=== PATIENT | male | born 1960 | race Caucasian/White ===

== ENCOUNTER 2021-09-13 11:22 | Inpatient (IN) | payer MEDICARE ==
[2021-09-13 12:32] LABS: ALT (SGPT) 20 U/L (8-55); AST (SGOT) 39 U/L (5-34); Albumin 3.9 g/dL (3.4-4.8); Alkaline Phosphatase 135 U/L (40-110); Anion Gap 20 mmol/L (10-20); BUN (Urea Nitrogen) 63 mg/dL (8.4-25.7); Bilirubin, Total 0.8 mg/dL (0.2-1.2); CK (CPK) 109 U/L (30-200); Calc. Creatinine Clearance 0 mL/min (70-130); Calcium 9.3 mg/dL (7.8-10.44); Carbon Dioxide 21 mmol/L (23-31); Chloride 102 mmol/L (98-107); Globulin 3.7 g/dL (2.4-3.5); Glucose 109 mg/dL (80-115); Lipase 52 U/L (8-78); Magnesium 2.5 mg/dL (1.6-2.6); Potassium 5.3 mmol/L (3.5-5.1); Protein, Total 7.6 g/dL (5.8-8.1); Sodium 138 mmol/L (136-145)
[2021-09-13 12:53] LABS: #Basophils 0.1 10x3/uL (0.0-0.2); #Eosinphils 0.2 10x3/uL (0.0-0.5); #Monocytes 0.6 10x3/uL (0.0-1.1); #Neutrophils 4.1 10x3/uL (1.5-8.4); %Basophils 1.6 % (0.0-2.0); %Eosinophils 2.7 % (0.0-6.0); %Lymphocytes 8.8 % (18.0-47.0); %Monocytes 11.7 % (0.0-10.0); %Neutrophils 74.7 % (40.0-75.0); Hemoglobin 10.6 g/dL (13.5-17.5); Mean Corpuscular HGB CONC 32.4 g/dL (32.0-36.0); Mean Corpuscular Hemoglobin 29.4 pg (27.0-33.0); Mean Corpuscular Volume 90.6 fl (81.2-95.1); Mean Platelet Volume 10.8 fl (7.4-10.4); Platelet Count 153 10x3/uL (150-450); RBC Distribution Width 19.7 % (11.5-14.5); Red Blood Cell (RBC) Count 3.61 10x6/uL (4.32-5.72); White Blood Cell (WBC) Count 5.5 10x3/uL (3.5-10.5)
[2021-09-13] MEDS ORDERED: Furosemide 40 MG/4 ML VIAL ONE (14:59)
[2021-09-13 16:30] LABS: Troponin I 0.068 ng/mL (< 0.028)
[2021-09-13] MEDS: Albumin 25% 25 GM/100 ML BOT IVPB SCH (18:30)
[2021-09-13] MEDS ORDERED: Acetaminophen 650 MG Suppository PR PRN (18:32)
[2021-09-13] MEDS ORDERED: Senokot S 8.6-50 MG TAB PO PRN (18:32)
[2021-09-13] MEDS ORDERED: Acetaminophen 325 MG TAB PO PRN (18:32)
[2021-09-13] MEDS ORDERED: Ondansetron PF 4 MG/2 ML Vial IVP PRN (18:32)
[2021-09-13] MEDS ORDERED: Ondansetron ODT 4 MG TAB PO PRN (18:32)
[2021-09-13 19:19] LABS: Troponin I 0.073 ng/mL (< 0.028)
[2021-09-13] MEDS: Benzonatate 100 MG CAP PO PRN (20:40)
[2021-09-13] MEDS ORDERED: Famotidine 20 MG TAB PO SCH (21:00)
[2021-09-14] MEDS: Albumin 25% 25 GM/100 ML BOT IVPB SCH ×3 (00:08→12:28)
[2021-09-14 05:02] LABS: #Basophils 0.1 10x3/uL (0.0-0.2); #Eosinphils 0.2 10x3/uL (0.0-0.5); #Monocytes 0.6 10x3/uL (0.0-1.1); #Neutrophils 2.7 10x3/uL (1.5-8.4); %Basophils 1.8 % (0.0-2.0); %Lymphocytes 10.3 % (18.0-47.0); %Monocytes 14.8 % (0.0-10.0); %Neutrophils 67.6 % (40.0-75.0); Hemoglobin 8.6 g/dL (13.5-17.5); Mean Corpuscular HGB CONC 31.7 g/dL (32.0-36.0); Mean Corpuscular Hemoglobin 28.7 pg (27.0-33.0); Mean Corpuscular Volume 90.3 fl (81.2-95.1); Mean Platelet Volume 10.5 fl (7.4-10.4); Platelet Count 130 10x3/uL (150-450); RBC Distribution Width 19.5 % (11.5-14.5)
[2021-09-14 05:21] LABS: Anion Gap 17 mmol/L (10-20); BUN (Urea Nitrogen) 62 mg/dL (8.4-25.7); Calc. Creatinine Clearance 42 mL/min (70-130); Calcium 8.9 mg/dL (7.8-10.44); Carbon Dioxide 20 mmol/L (23-31); Chloride 106 mmol/L (98-107); Glucose 115 mg/dL (80-115); Potassium 4.4 mmol/L (3.5-5.1); Sodium 139 mmol/L (136-145)
[2021-09-14 08:44] LABS: Cholesterol 167 mg/dl (< 200 Desired); HDL Cholesterol 28 mg/dL (>60 Neg Risk); Iron 31 ug/dL (65-175); Iron 32 ug/dL (65-175); Iron Binding Capacity, Total 285 mcg/dL (261-462); LDL Cholesterol, Calculated 119 mg/dL; Phosphorus 4.8 mg/dL (2.3-4.7); Triglycerides 98 mg/dL (Less than 150)
[2021-09-14] MEDS: Ferrous Sulfate 325 MG TAB PO SCH ×2 (09:49→17:35)
[2021-09-14] MEDS: Furosemide 40 MG TAB PO SCH ×2 (09:49→14:41)
[2021-09-14] MEDS: EPOETIN ALFA-EPBX (ESRD) 4,000 UNIT/ML VIAL SC SCH (09:50)
[2021-09-14 11:21] LABS: Bilirubin Neg (Negative); Blood, Urine 10 (Negative); Glucose, Urine (Dipstick) Normal (Negative); Ketone, Urine Negative (Negative); Leukocyte Negative (Negative); Nitrite Negative (Negative); Protein, Urine (Dipstick) 500 mg/dl (Neg-Trace); Urobilinogen Normal mg/dL (Less than 2); pH, Urine 6.5 (5.0-9.0)
[2021-09-14 11:22] LABS: Clarity Clear (Clear)
[2021-09-14 11:32] LABS: Bacteria/HPF None Seen HPF (None Seen); RBC/HPF 0-3 HPF (0-3); Squamous Epithelial 0-3 HPF (0-3)
[2021-09-14 12:44] LABS: Hemoglobin A1c 5.8 % (4.0-6.0)
[2021-09-14] MEDS: Carvedilol 3.125 MG TAB PO SCH (17:35)
[2021-09-14 19:00] LABS: SARS-CoV-2 PCR by NAA Not Detected (NotDetected)
[2021-09-14 19:37] LABS: Creatinine, Urine 57.11 mg/dL (63-166)
[2021-09-14] MEDS: Benzonatate 100 MG CAP PO PRN (20:53)
[2021-09-14] MEDS: Atorvastatin Calcium 40 MG TAB PO SCH (20:53)
[2021-09-14] MEDS: Famotidine 20 MG TAB PO SCH (20:53)
[2021-09-14] MEDS: hydrALAZINE 25 MG TAB PO SCH (20:54)
[2021-09-15 05:40] LABS: #Basophils 0.1 10x3/uL (0.0-0.2); #Eosinphils 0.2 10x3/uL (0.0-0.5); #Monocytes 0.6 10x3/uL (0.0-1.1); #Neutrophils 2.8 10x3/uL (1.5-8.4); %Basophils 1.7 % (0.0-2.0); %Eosinophils 5.6 % (0.0-6.0); %Lymphocytes 10.2 % (18.0-47.0); %Monocytes 13.6 % (0.0-10.0); %Neutrophils 68.4 % (40.0-75.0); Hemoglobin 8.8 g/dL (13.5-17.5); Mean Corpuscular HGB CONC 31.9 g/dL (32.0-36.0); Mean Corpuscular Hemoglobin 29.2 pg (27.0-33.0); Mean Corpuscular Volume 91.7 fl (81.2-95.1); Mean Platelet Volume 10.8 fl (7.4-10.4); Platelet Count 135 10x3/uL (150-450); RBC Distribution Width 19.2 % (11.5-14.5); Red Blood Cell (RBC) Count 3.01 10x6/uL (4.32-5.72); White Blood Cell (WBC) Count 4.1 10x3/uL (3.5-10.5)
[2021-09-15 05:40] LABS: INR-International Normal Ratio 1.1; PTT 28.5 sec (22.0-33.0); Prothrombin Time 11.9 sec (9.5-12.1)
[2021-09-15 05:52] LABS: ALT (SGPT) 15 U/L (8-55); AST (SGOT) 16 U/L (5-34); Albumin 3.6 g/dL (3.4-4.8); Alkaline Phosphatase 101 U/L (40-110); Anion Gap 16 mmol/L (10-20); BUN (Urea Nitrogen) 60 mg/dL (8.4-25.7); Bilirubin, Total 0.7 mg/dL (0.2-1.2); Calc. Creatinine Clearance 43 mL/min (70-130); Calcium 8.8 mg/dL (7.8-10.44); Carbon Dioxide 21 mmol/L (23-31); Chloride 106 mmol/L (98-107); Globulin 2.7 g/dL (2.4-3.5); Glucose 122 mg/dL (80-115); Potassium 4.4 mmol/L (3.5-5.1); Protein, Total 6.3 g/dL (5.8-8.1); Sodium 139 mmol/L (136-145)
[2021-09-15] MEDS: Albumin 25% 25 GM/100 ML BOT IVPB SCH ×3 (09:05→20:58)
[2021-09-15] MEDS: Carvedilol 3.125 MG TAB PO SCH ×2 (09:05→16:32)
[2021-09-15] MEDS: hydrALAZINE 25 MG TAB PO SCH ×3 (09:05→20:58)
[2021-09-15] MEDS: Furosemide 40 MG TAB PO SCH ×2 (09:05→14:31)
[2021-09-15] MEDS: Aspirin 81 mg Enteric Coated Tablet PO SCH ×2 (09:05→09:10)
[2021-09-15] MEDS: Ferrous Sulfate 325 MG TAB PO SCH ×2 (09:05→16:32)
[2021-09-15 13:15] LABS: Hep C IgG Ab Non-Reactive (NonReactive); Hep C Index 0.04 S/CO (0-0.79)
[2021-09-15] MEDS: Benzonatate 100 MG CAP PO PRN (17:24)
[2021-09-15] MEDS: Heparin 5,000 UNITS/ML VIAL SC SCH (20:58)
[2021-09-15] MEDS: Famotidine 20 MG TAB PO SCH (20:59)
[2021-09-15] MEDS: Atorvastatin Calcium 40 MG TAB PO SCH (20:59)
[2021-09-16] MEDS: Albumin 25% 25 GM/100 ML BOT IVPB SCH (02:01)
[2021-09-16] MEDS: Benzonatate 100 MG CAP PO PRN ×2 (02:40→17:12)
[2021-09-16 04:41] LABS: #Basophils 0.1 10x3/uL (0.0-0.2); #Eosinphils 0.2 10x3/uL (0.0-0.5); #Monocytes 0.6 10x3/uL (0.0-1.1); #Neutrophils 3.2 10x3/uL (1.5-8.4); %Basophils 1.1 % (0.0-2.0); %Lymphocytes 10.2 % (18.0-47.0); %Monocytes 13.7 % (0.0-10.0); %Neutrophils 69.6 % (40.0-75.0); Hemoglobin 9.1 g/dL (13.5-17.5); Mean Corpuscular HGB CONC 32.6 g/dL (32.0-36.0); Mean Corpuscular Hemoglobin 29.3 pg (27.0-33.0); Mean Corpuscular Volume 89.7 fl (81.2-95.1); Mean Platelet Volume 10.5 fl (7.4-10.4); Platelet Count 128 10x3/uL (150-450); RBC Distribution Width 19.1 % (11.5-14.5); Red Blood Cell (RBC) Count 3.11 10x6/uL (4.32-5.72); White Blood Cell (WBC) Count 4.6 10x3/uL (3.5-10.5)
[2021-09-16 05:16] LABS: Anion Gap 18 mmol/L (10-20); BUN (Urea Nitrogen) 64 mg/dL (8.4-25.7); Calc. Creatinine Clearance 40 mL/min (70-130); Carbon Dioxide 20 mmol/L (23-31); Chloride 105 mmol/L (98-107); Glucose 126 mg/dL (80-115); Potassium 4.6 mmol/L (3.5-5.1); Sodium 138 mmol/L (136-145)
[2021-09-16] MEDS ORDERED: Furosemide 40 MG/4 ML VIAL SLOW IVP SCH (09:00)
[2021-09-16] MEDS: Ferrous Sulfate 325 MG TAB PO SCH ×2 (10:19→17:12)
[2021-09-16] MEDS: Furosemide 40 MG/4 ML VIAL SLOW IVP SCH ×2 (10:19→14:39)
[2021-09-16] MEDS: hydrALAZINE 25 MG TAB PO SCH ×3 (10:19→20:50)
[2021-09-16] MEDS: Aspirin 81 mg Enteric Coated Tablet PO SCH (10:20)
[2021-09-16] MEDS: Heparin 5,000 UNITS/ML VIAL SC SCH ×2 (10:20→20:51)
[2021-09-16] MEDS: Carvedilol 6.25 MG TAB PO SCH ×2 (10:22→17:44)
[2021-09-16 12:35] LABS: Hep B Surf Ag Non-Reactive S/CO (NonReactive)
[2021-09-16] MEDS ORDERED: Heparin 10,000 UNITS/ 10 ML VIAL FS SCH (15:00)
[2021-09-16 17:03] LABS: HBSAB Concentration Less than 8.00 mIU/mL; Hep B Surf AB Non-Reactive (NonReactive)
[2021-09-16] MEDS: Famotidine 20 MG TAB PO SCH (20:50)
[2021-09-16] MEDS: Atorvastatin Calcium 40 MG TAB PO SCH (20:50)
[2021-09-17] MEDS: Benzonatate 100 MG CAP PO PRN ×2 (00:56→13:28)
[2021-09-17 04:39] LABS: Hemoglobin 8.6 g/dL (13.5-17.5); Mean Corpuscular HGB CONC 31.5 g/dL (32.0-36.0); Mean Corpuscular Hemoglobin 28.6 pg (27.0-33.0); Mean Corpuscular Volume 90.7 fl (81.2-95.1); Mean Platelet Volume 10.4 fl (7.4-10.4); Platelet Count 108 10x3/uL (150-450); RBC Distribution Width 18.7 % (11.5-14.5); Red Blood Cell (RBC) Count 3.01 10x6/uL (4.32-5.72); White Blood Cell (WBC) Count 4.5 10x3/uL (3.5-10.5)
[2021-09-17 05:09] LABS: ALT (SGPT) 15 U/L (8-55); AST (SGOT) 17 U/L (5-34); Albumin 3.8 g/dL (3.4-4.8); Alkaline Phosphatase 97 U/L (40-110); Anion Gap 16 mmol/L (10-20); BUN (Urea Nitrogen) 57 mg/dL (8.4-25.7); Bilirubin, Total 0.7 mg/dL (0.2-1.2); Calc. Creatinine Clearance 42 mL/min (70-130); Calcium 8.8 mg/dL (7.8-10.44); Carbon Dioxide 22 mmol/L (23-31); Chloride 105 mmol/L (98-107); Globulin 2.8 g/dL (2.4-3.5); Glucose 112 mg/dL (80-115); Magnesium 2.2 mg/dL (1.6-2.6); Phosphorus 5.2 mg/dL (2.3-4.7); Potassium 4.4 mmol/L (3.5-5.1); Protein, Total 6.6 g/dL (5.8-8.1); Sodium 139 mmol/L (136-145)
[2021-09-17 06:54] LABS: MDiff Complete? YES
[2021-09-17 06:57] LABS: Eosinophils 5 % (0-10); Lymphocytes 10 % (21-51); Monocytes 15 % (0-10); Neutrophil 68 % (42-75)
[2021-09-17 07:00] LABS: Platelet Morphology Comment Appears Decreased; RBC Morphology Normal
[2021-09-17] MEDS ORDERED: Furosemide 40 MG/4 ML VIAL ONE (08:22)
[2021-09-17] MEDS: Ferrous Sulfate 325 MG TAB PO SCH ×2 (08:40→18:33)
[2021-09-17] MEDS: Carvedilol 6.25 MG TAB PO SCH ×2 (08:40→18:31)
[2021-09-17] MEDS: Aspirin 81 mg Enteric Coated Tablet PO SCH ×2 (08:41→08:46)
[2021-09-17] MEDS: Sevelamer Carbonate 800 MG TAB PO SCH ×3 (08:41→18:38)
[2021-09-17] MEDS: hydrALAZINE 25 MG TAB PO SCH ×3 (08:41→21:40)
[2021-09-17] MEDS: Heparin 5,000 UNITS/ML VIAL SC SCH ×2 (08:56→21:41)
[2021-09-17] MEDS ORDERED: Heparin 10,000 UNITS/ 10 ML VIAL FS PRN ×2 (12:10→16:37)
[2021-09-17 17:14] LABS: HIV-1 Quantitative, RNA PCR <20 copies/mL (.)
[2021-09-17] MEDS: Famotidine 20 MG TAB PO SCH (21:40)
[2021-09-17] MEDS: Atorvastatin Calcium 40 MG TAB PO SCH (21:40)
[2021-09-18 04:34] LABS: Anion Gap 16 mmol/L (10-20); BUN (Urea Nitrogen) 53 mg/dL (8.4-25.7); Calc. Creatinine Clearance 43 mL/min (70-130); Calcium 8.6 mg/dL (7.8-10.44); Carbon Dioxide 24 mmol/L (23-31); Chloride 104 mmol/L (98-107); Glucose 129 mg/dL (80-115); Potassium 4.3 mmol/L (3.5-5.1); Sodium 140 mmol/L (136-145)
[2021-09-18 04:51] LABS: Hemoglobin 8.3 g/dL (13.5-17.5); Mean Corpuscular HGB CONC 31.9 g/dL (32.0-36.0); Mean Corpuscular Hemoglobin 28.8 pg (27.0-33.0); Mean Corpuscular Volume 90.3 fl (81.2-95.1); Mean Platelet Volume 10.9 fl (7.4-10.4); Platelet Count 97 10x3/uL (150-450); Red Blood Cell (RBC) Count 2.88 10x6/uL (4.32-5.72); White Blood Cell (WBC) Count 4.7 10x3/uL (3.5-10.5)
[2021-09-18 06:35] LABS: MDiff Complete? YES; Platelet Morphology Comment Appears Decreased
[2021-09-18 06:36] LABS: Anisocytosis SLIGHT = 6-15 cells (100X) (0-5/hpf)
[2021-09-18 06:40] LABS: Band 2 % (5-11); Eosinophils 4 % (0-10); Lymphocytes 9 % (21-51); Monocytes 17 % (0-10); Neutrophil 65 % (42-75)
[2021-09-18] MEDS: Aspirin 81 mg Enteric Coated Tablet PO SCH (11:36)
[2021-09-18] MEDS: Carvedilol 6.25 MG TAB PO SCH ×2 (11:36→17:54)
[2021-09-18] MEDS: Sevelamer Carbonate 800 MG TAB PO SCH ×3 (11:37→18:03)
[2021-09-18] MEDS: Ferrous Sulfate 325 MG TAB PO SCH ×2 (11:37→17:53)
[2021-09-18] MEDS: hydrALAZINE 25 MG TAB PO SCH ×3 (11:41→22:01)
[2021-09-18] MEDS: Heparin 5,000 UNITS/ML VIAL SC SCH ×2 (11:54→22:00)
[2021-09-18] MEDS: Guaifenesin DM 100-10/5 ML UDCUP PO PRN (17:53)
[2021-09-18] MEDS: Atorvastatin Calcium 40 MG TAB PO SCH (22:02)
[2021-09-18] MEDS: Famotidine 20 MG TAB PO SCH (22:02)
[2021-09-19 05:20] LABS: Hemoglobin 8.4 g/dL (13.5-17.5); Mean Corpuscular HGB CONC 32.4 g/dL (32.0-36.0); Mean Corpuscular Hemoglobin 29.2 pg (27.0-33.0); Mean Corpuscular Volume 89.9 fl (81.2-95.1); Mean Platelet Volume 11.5 fl (7.4-10.4); Platelet Count 105 10x3/uL (150-450); RBC Distribution Width 18.8 % (11.5-14.5); Red Blood Cell (RBC) Count 2.88 10x6/uL (4.32-5.72); White Blood Cell (WBC) Count 4.8 10x3/uL (3.5-10.5)
[2021-09-19 05:35] LABS: Anion Gap 16 mmol/L (10-20); BUN (Urea Nitrogen) 58 mg/dL (8.4-25.7); Calc. Creatinine Clearance 40 mL/min (70-130); Calcium 8.7 mg/dL (7.8-10.44); Carbon Dioxide 22 mmol/L (23-31); Chloride 105 mmol/L (98-107); Glucose 124 mg/dL (80-115); Phosphorus 5.4 mg/dL (2.3-4.7); Potassium 4.2 mmol/L (3.5-5.1); Sodium 139 mmol/L (136-145)
[2021-09-19] MEDS: Ferrous Sulfate 325 MG TAB PO SCH ×2 (08:24→16:23)
[2021-09-19] MEDS: Aspirin 81 mg Enteric Coated Tablet PO SCH (08:25)
[2021-09-19] MEDS: Carvedilol 6.25 MG TAB PO SCH ×2 (08:25→16:23)
[2021-09-19] MEDS: Sevelamer Carbonate 800 MG TAB PO SCH ×3 (08:25→16:23)
[2021-09-19] MEDS: Heparin 5,000 UNITS/ML VIAL SC SCH ×2 (08:25→21:25)
[2021-09-19] MEDS: hydrALAZINE 25 MG TAB PO SCH ×3 (08:26→21:24)
[2021-09-19] MEDS: Benzonatate 100 MG CAP PO PRN ×2 (16:23→21:24)
[2021-09-19] MEDS: Guaifenesin DM 100-10/5 ML UDCUP PO PRN (16:29)
[2021-09-19] MEDS ORDERED: Tuberculin PPD 0.1 ML VIAL I-DERMAL SCH (17:30)
[2021-09-19] MEDS: Atorvastatin Calcium 40 MG TAB PO SCH (21:24)
[2021-09-19] MEDS: Famotidine 20 MG TAB PO SCH (21:25)
[2021-09-20 04:21] LABS: Hemoglobin 8.3 g/dL (13.5-17.5); Mean Corpuscular Hemoglobin 28.8 pg (27.0-33.0); Mean Corpuscular Volume 89.9 fl (81.2-95.1); Mean Platelet Volume 10.4 fl (7.4-10.4); RBC Distribution Width 18.7 % (11.5-14.5); Red Blood Cell (RBC) Count 2.88 10x6/uL (4.32-5.72); White Blood Cell (WBC) Count 4.6 10x3/uL (3.5-10.5)
[2021-09-20 04:41] LABS: Anion Gap 15 mmol/L (10-20); BUN (Urea Nitrogen) 50 mg/dL (8.4-25.7); Calc. Creatinine Clearance 42 mL/min (70-130); Calcium 8.6 mg/dL (7.8-10.44); Carbon Dioxide 24 mmol/L (23-31); Chloride 103 mmol/L (98-107); Glucose 114 mg/dL (80-115); Sodium 138 mmol/L (136-145)
[2021-09-20 04:49] LABS: Platelet Count 99 10x3/uL (150-450)
[2021-09-20 04:50] LABS: MDiff Complete? YES
[2021-09-20 04:54] LABS: Band 1 % (5-11); Eosinophils 1 % (0-10); Lymphocytes 11 % (21-51); Monocytes 16 % (0-10); Neutrophil 67 % (42-75); Reactive Lymphocytes 4 % (0-10)
[2021-09-20 04:55] LABS: Ovalocytes SLIGHT = 2-5 cells (100X) (0-1/hpf); Platelet Morphology Comment Appears Decreased
[2021-09-20] MEDS: Sevelamer Carbonate 800 MG TAB PO SCH ×3 (07:55→17:24)
[2021-09-20] MEDS: Ferrous Sulfate 325 MG TAB PO SCH ×2 (07:55→17:24)
[2021-09-20] MEDS: Carvedilol 6.25 MG TAB PO SCH ×2 (07:55→17:24)
[2021-09-20] MEDS: Aspirin 81 mg Enteric Coated Tablet PO SCH ×2 (07:55→08:06)
[2021-09-20] MEDS: Heparin 5,000 UNITS/ML VIAL SC SCH ×2 (07:55→20:52)
[2021-09-20] MEDS: hydrALAZINE 25 MG TAB PO SCH ×3 (07:56→20:52)
[2021-09-20] MEDS: Guaifenesin DM 100-10/5 ML UDCUP PO PRN (18:12)
[2021-09-20] MEDS: Famotidine 20 MG TAB PO SCH ×2 (20:51→20:55)
[2021-09-20] MEDS: Atorvastatin Calcium 40 MG TAB PO SCH ×2 (20:52→20:54)
[2021-09-20 22:50] LABS: Hep B Core Total Ab Non-Reactive (NonReactive); Hep B Core Total Index 0.05 S/CO (0-0.79)
[2021-09-21 04:37] LABS: Hemoglobin 8.7 g/dL (13.5-17.5); Mean Corpuscular HGB CONC 32.2 g/dL (32.0-36.0); Mean Corpuscular Hemoglobin 28.9 pg (27.0-33.0); Mean Corpuscular Volume 89.7 fl (81.2-95.1); Mean Platelet Volume 11.1 fl (7.4-10.4); Platelet Count 106 10x3/uL (150-450); RBC Distribution Width 18.4 % (11.5-14.5); Red Blood Cell (RBC) Count 3.01 10x6/uL (4.32-5.72); White Blood Cell (WBC) Count 4.3 10x3/uL (3.5-10.5)
[2021-09-21 05:10] LABS: Anion Gap 16 mmol/L (10-20); BUN (Urea Nitrogen) 34 mg/dL (8.4-25.7); Calc. Creatinine Clearance 51 mL/min (70-130); Calcium 8.9 mg/dL (7.8-10.44); Carbon Dioxide 25 mmol/L (23-31); Chloride 101 mmol/L (98-107); Glucose 110 mg/dL (80-115); Potassium 4.1 mmol/L (3.5-5.1); Sodium 138 mmol/L (136-145)
[2021-09-21 05:45] VITALS: BMI 37.9
[2021-09-21 05:51] LABS: MDiff Complete? YES
[2021-09-21 05:54] LABS: Eosinophils 6 % (0-10); Lymphocytes 5 % (21-51); Monocytes 14 % (0-10); Neutrophil 73 % (42-75); Platelet Morphology Comment Appears Decreased; Reactive Lymphocytes 1 % (0-10)
[2021-09-21 05:55] LABS: RBC Morphology Normal
[2021-09-21] MEDS: EPOETIN ALFA-EPBX (ESRD) 4,000 UNIT/ML VIAL SC SCH (10:02)
[2021-09-21] MEDS: Carvedilol 6.25 MG TAB PO SCH ×2 (10:03→15:42)
[2021-09-21] MEDS: hydrALAZINE 25 MG TAB PO SCH ×3 (10:03→20:58)
[2021-09-21] MEDS: Ferrous Sulfate 325 MG TAB PO SCH ×2 (10:03→15:42)
[2021-09-21] MEDS: Sevelamer Carbonate 800 MG TAB PO SCH ×3 (10:03→15:41)
[2021-09-21] MEDS: Aspirin 81 mg Enteric Coated Tablet PO SCH (10:03)
[2021-09-21] MEDS: Heparin 5,000 UNITS/ML VIAL SC SCH ×2 (11:25→20:59)
[2021-09-21] MEDS ORDERED: READ PPD TEST SITE PO SCH (17:30)
[2021-09-21] MEDS: Guaifenesin DM 100-10/5 ML UDCUP PO PRN (18:55)
[2021-09-21] MEDS: Famotidine 20 MG TAB PO SCH (20:59)
[2021-09-21] MEDS: Atorvastatin Calcium 40 MG TAB PO SCH (20:59)
[2021-09-21 22:19] LABS: SARS-CoV-2 PCR by NAA Not Detected (NotDetected)
[2021-09-22] MEDS: Guaifenesin DM 100-10/5 ML UDCUP PO PRN (03:38)
[2021-09-22 04:30] LABS: Hemoglobin 8.3 g/dL (13.5-17.5); Mean Corpuscular HGB CONC 31.8 g/dL (32.0-36.0); Mean Corpuscular Hemoglobin 28.8 pg (27.0-33.0); Mean Corpuscular Volume 90.6 fl (81.2-95.1); Mean Platelet Volume 10.9 fl (7.4-10.4); Platelet Count 102 10x3/uL (150-450); Red Blood Cell (RBC) Count 2.88 10x6/uL (4.32-5.72); White Blood Cell (WBC) Count 4.7 10x3/uL (3.5-10.5)
[2021-09-22 04:44] LABS: Anion Gap 17 mmol/L (10-20); BUN (Urea Nitrogen) 44 mg/dL (8.4-25.7); Calc. Creatinine Clearance 41 mL/min (70-130); Calcium 8.9 mg/dL (7.8-10.44); Carbon Dioxide 23 mmol/L (23-31); Chloride 101 mmol/L (98-107); Glucose 116 mg/dL (80-115); Sodium 137 mmol/L (136-145)
[2021-09-22 05:23] LABS: MDiff Complete? YES
[2021-09-22 05:27] LABS: Eosinophils 4 % (0-10); Lymphocytes 11 % (21-51); Monocytes 22 % (0-10); Neutrophil 63 % (42-75)
[2021-09-22 05:30] LABS: Platelet Morphology Comment Appears Decreased; RBC Morphology Normal
[2021-09-22] MEDS: Sevelamer Carbonate 800 MG TAB PO SCH ×3 (08:25→16:57)
[2021-09-22] MEDS: Carvedilol 6.25 MG TAB PO SCH ×2 (08:25→14:55)
[2021-09-22] MEDS: Ferrous Sulfate 325 MG TAB PO SCH ×2 (08:25→14:56)
[2021-09-22] MEDS: Aspirin 81 mg Enteric Coated Tablet PO SCH (08:25)
[2021-09-22] MEDS: hydrALAZINE 25 MG TAB PO SCH ×3 (08:25→21:30)
[2021-09-22] MEDS: Heparin 5,000 UNITS/ML VIAL SC SCH ×2 (08:25→21:30)
[2021-09-22] MEDS ORDERED: EPINEPHrine 1 MG/ML AMP ONE (10:23)
[2021-09-22] MEDS ORDERED: Bupivacaine 0.25% HCL 30 ML VIAL ONE (10:23)
[2021-09-22] MEDS ORDERED: ceFAZolin 2 GM/Dextrose 50 ML IVPB ONE (13:04)
[2021-09-22] MEDS ORDERED: Ketamine 50 MG/ML (10ML VIAL) ONE (13:07)
[2021-09-22] MEDS ORDERED: Fentanyl 100 MCG/2 ML VIAL ONE (13:08)
[2021-09-22] MEDS ORDERED: PROPOFOL 20 ML ONE ×2 (13:08→13:40)
[2021-09-22] MEDS ORDERED: Midazolam HCl 2 mg/2 ml Vial ONE (13:09)
[2021-09-22] MEDS: Famotidine 20 MG TAB PO SCH (21:30)
[2021-09-22] MEDS: Atorvastatin Calcium 40 MG TAB PO SCH (21:30)
[2021-09-23 05:25] LABS: Hemoglobin 8.2 g/dL (13.5-17.5); Mean Corpuscular HGB CONC 31.5 g/dL (32.0-36.0); Mean Corpuscular Hemoglobin 28.7 pg (27.0-33.0); Mean Corpuscular Volume 90.9 fl (81.2-95.1); Mean Platelet Volume 11.5 fl (7.4-10.4); Platelet Count 106 10x3/uL (150-450); RBC Distribution Width 18.1 % (11.5-14.5); Red Blood Cell (RBC) Count 2.86 10x6/uL (4.32-5.72); White Blood Cell (WBC) Count 4.4 10x3/uL (3.5-10.5)
[2021-09-23 05:37] LABS: Anion Gap 14 mmol/L (10-20); BUN (Urea Nitrogen) 29 mg/dL (8.4-25.7); Calc. Creatinine Clearance 55 mL/min (70-130); Calcium 8.7 mg/dL (7.8-10.44); Carbon Dioxide 27 mmol/L (23-31); Chloride 102 mmol/L (98-107); Glucose 120 mg/dL (80-115); Potassium 4.2 mmol/L (3.5-5.1); Sodium 139 mmol/L (136-145)
[2021-09-23 06:40] LABS: Band 1 % (5-11); Eosinophils 3 % (0-10); Lymphocytes 6 % (21-51); Monocytes 13 % (0-10); Neutrophil 75 % (42-75); Reactive Lymphocytes 2 % (0-10)
[2021-09-23 06:42] LABS: Anisocytosis SLIGHT = 6-15 cells (100X) (0-5/hpf); Elliptocytes SLIGHT = 2-5 cells (100X) (0-1/hpf); Macrocytosis SLIGHT = 6-15 cells (100X) (0-5/hpf); Microcytosis SLIGHT = 6-15 cells (100X) (0-5/hpf); Platelet Morphology Comment Appears Decreased
[2021-09-23 06:45] LABS: MDiff Complete? YES; Manual Diff?? YES
[2021-09-23] MEDS: Ferrous Sulfate 325 MG TAB PO SCH ×2 (08:16→17:09)
[2021-09-23] MEDS: Aspirin 81 mg Enteric Coated Tablet PO SCH (08:16)
[2021-09-23] MEDS: Sevelamer Carbonate 800 MG TAB PO SCH ×3 (08:16→17:08)
[2021-09-23] MEDS: Carvedilol 6.25 MG TAB PO SCH ×2 (08:16→17:08)
[2021-09-23] MEDS: hydrALAZINE 25 MG TAB PO SCH ×3 (08:16→20:53)
[2021-09-23] MEDS: Heparin 5,000 UNITS/ML VIAL SC SCH ×2 (08:17→22:43)
[2021-09-23] MEDS: Famotidine 20 MG TAB PO SCH (20:53)
[2021-09-23] MEDS: Atorvastatin Calcium 40 MG TAB PO SCH (20:53)
[2021-09-23] MEDS: Benzonatate 100 MG CAP PO PRN (20:57)
[2021-09-24 04:31] LABS: Mean Corpuscular HGB CONC 31.9 g/dL (32.0-36.0); Mean Corpuscular Hemoglobin 28.9 pg (27.0-33.0); Mean Corpuscular Volume 90.6 fl (81.2-95.1); Mean Platelet Volume 11.1 fl (7.4-10.4); Platelet Count 105 10x3/uL (150-450); RBC Distribution Width 18.2 % (11.5-14.5); Red Blood Cell (RBC) Count 2.77 10x6/uL (4.32-5.72); White Blood Cell (WBC) Count 4.4 10x3/uL (3.5-10.5)
[2021-09-24 04:58] LABS: Anion Gap 15 mmol/L (10-20); BUN (Urea Nitrogen) 42 mg/dL (8.4-25.7); Calc. Creatinine Clearance 41 mL/min (70-130); Calcium 8.7 mg/dL (7.8-10.44); Carbon Dioxide 25 mmol/L (23-31); Chloride 101 mmol/L (98-107); Glucose 110 mg/dL (80-115); Potassium 4.2 mmol/L (3.5-5.1); Sodium 137 mmol/L (136-145)
[2021-09-24 05:46] LABS: MDiff Complete? YES
[2021-09-24 05:52] LABS: Eosinophils 4 % (0-10); Lymphocytes 10 % (21-51); Monocytes 14 % (0-10); Neutrophil 72 % (42-75)
[2021-09-24 05:57] LABS: Anisocytosis SLIGHT = 6-15 cells (100X) (0-5/hpf); Macrocytosis SLIGHT = 6-15 cells (100X) (0-5/hpf); Microcytosis SLIGHT = 6-15 cells (100X) (0-5/hpf); Platelet Morphology Comment Appears Decreased
[2021-09-24] MEDS: Heparin 5,000 UNITS/ML VIAL SC SCH (13:33)
[2021-09-24] MEDS: Ferrous Sulfate 325 MG TAB PO SCH ×2 (13:35→16:16)
[2021-09-24] MEDS: Carvedilol 6.25 MG TAB PO SCH ×2 (13:35→16:15)
[2021-09-24] MEDS: Sevelamer Carbonate 800 MG TAB PO SCH ×3 (13:36→16:12)
[2021-09-24] MEDS: Aspirin 81 mg Enteric Coated Tablet PO SCH (13:36)
[2021-09-24] MEDS: hydrALAZINE 25 MG TAB PO SCH ×2 (13:36→16:12)
[2021-09-24 16:42] VITALS: BP 142/68; TEMP 99.5
== END 2021-09-24 18:10 | disposition home or self-care (01) | DRG 673 ==
LOC: CSHERS 11:22 → CSHTELE 16:25 → OBSVTOIN 09-15 12:44
PROVIDERS: ADMIT Emergency Medicine; ATTEND Hospitalist
PROC: 5A1D70Z Performance of Urinary Filtration, Intermittent, Less than 6 Hours Per Day (ICD-10-PCS; 2021-09-16)
PROC: 06HY33Z Insertion of Infusion Device into Lower Vein, Percutaneous Approach (ICD-10-PCS; 2021-09-16)
PROC: B54CZZA Ultrasonography of Left Lower Extremity Veins, Guidance (ICD-10-PCS; 2021-09-16)
PROC: 0JH63XZ Insertion of Tunneled Vascular Access Device into Chest Subcutaneous Tissue and Fascia, Percutaneous Approach (ICD-10-PCS; principal; 2021-09-22)
PROC: 02HV33Z Insertion of Infusion Device into Superior Vena Cava, Percutaneous Approach (ICD-10-PCS; 2021-09-22)
PROC: B5181ZA Fluoroscopy of Superior Vena Cava using Low Osmolar Contrast, Guidance (ICD-10-PCS; 2021-09-22)
PROC: B548ZZA Ultrasonography of Superior Vena Cava, Guidance (ICD-10-PCS; 2021-09-22)
DX: N17.9 Acute kidney failure, unspecified (principal); I50.43 Acute on chronic combined systolic (congestive) and diastolic (congestive) heart failure; I69.354 Hemiplegia and hemiparesis following cerebral infarction affecting left non-dominant side; J90 Pleural effusion, not elsewhere classified; Z20.822 Contact with and (suspected) exposure to COVID-19; E87.5 Hyperkalemia; E11.22 Type 2 diabetes mellitus with diabetic chronic kidney disease; E11.42 Type 2 diabetes mellitus with diabetic polyneuropathy; M43.10 Spondylolisthesis, site unspecified; N25.81 Secondary hyperparathyroidism of renal origin; Z60.2 Problems related to living alone; I35.0 Nonrheumatic aortic (valve) stenosis; D63.1 Anemia in chronic kidney disease; I25.10 Atherosclerotic heart disease of native coronary artery without angina pectoris; E66.01 Morbid (severe) obesity due to excess calories; F41.9 Anxiety disorder, unspecified; N18.6 End stage renal disease; I45.10 Unspecified right bundle-branch block; K74.60 Unspecified cirrhosis of liver; E83.39 Other disorders of phosphorus metabolism; Z95.2 Presence of prosthetic heart valve; Z88.8 Allergy status to other drugs, medicaments and biological substances; Z79.899 Other long term (current) drug therapy; Z95.1 Presence of aortocoronary bypass graft; Z95.5 Presence of coronary angioplasty implant and graft; Z89.412 Acquired absence of left great toe; Z89.422 Acquired absence of other left toe(s); Z85.51 Personal history of malignant neoplasm of bladder; Z68.37 Body mass index [BMI] 37.0-37.9, adult
CPT/HCPCS: 0439T; 36415; 36416; 71045; 80048; 80053; 80061; 81001; 82550; 82553; 82570; 82607; 82746; 83036; 83540; 83550; 83690; 83735; 83880; 84100; 84156; 84484; 85025; 85027; 85610; 85730; 86580; 86704; 86706; 86803; 87340; 87536; 90935; 93005; 93010; 93306; 94760; 96372; 96374; 96375; 96376; 99213; C1752; G0257; G0378; G0463; J0171; J0690; J1642; J1644; J1940; J2250; J2704; J3010; P9047; Q5105; S0020; U0003; U0005

== ENCOUNTER 2021-09-25 17:55 | Emergency (ER) | payer MEDICARE ==
[2021-09-25 18:26] LABS: Hemoglobin 8.9 g/dL (13.5-17.5); Mean Corpuscular HGB CONC 31.8 g/dL (32.0-36.0); Mean Corpuscular Volume 91.2 fl (81.2-95.1); Mean Platelet Volume 10.8 fl (7.4-10.4); Platelet Count 120 10x3/uL (150-450); Red Blood Cell (RBC) Count 3.07 10x6/uL (4.32-5.72); White Blood Cell (WBC) Count 6.4 10x3/uL (3.5-10.5)
[2021-09-25 18:29] LABS: INR-International Normal Ratio 1.1; Prothrombin Time 11.7 sec (9.5-12.1)
[2021-09-25 18:30] LABS: ALT (SGPT) 7 U/L (8-55); AST (SGOT) 20 U/L (5-34); Albumin 3.9 g/dL (3.4-4.8); Alkaline Phosphatase 110 U/L (40-110); Anion Gap 16 mmol/L (10-20); BUN (Urea Nitrogen) 36 mg/dL (8.4-25.7); Bilirubin, Total 1.3 mg/dL (0.2-1.2); Calc. Creatinine Clearance 0 mL/min (70-130); Calcium 9.3 mg/dL (7.8-10.44); Carbon Dioxide 26 mmol/L (23-31); Chloride 98 mmol/L (98-107); Globulin 3.3 g/dL (2.4-3.5); Glucose 108 mg/dL (80-115); Potassium 3.9 mmol/L (3.5-5.1); Protein, Total 7.2 g/dL (5.8-8.1); Sodium 136 mmol/L (136-145)
[2021-09-25 18:58] LABS: Eosinophils 3 % (0-10); Lymphocytes 8 % (21-51); Monocytes 13 % (0-10); Neutrophil 74 % (42-75)
[2021-09-25 18:59] LABS: Anisocytosis SLIGHT = 6-15 cells (100X) (0-5/hpf); Hypochromia SLIGHT = 6-15 cells (100X) (0-5/hpf); MDiff Complete? YES
[2021-09-25 19:00] LABS: Platelet Morphology Comment Appears Decreased
[2021-09-25] MEDS ORDERED: Acetaminophen 500 MG TAB ONE (23:05)
[2021-09-25] MEDS ORDERED: traMADol HCl 50 MG TAB ONE (23:11)
[2021-09-26 00:38] LABS: Hemoglobin 8.5 g/dL (13.5-17.5); Mean Corpuscular HGB CONC 32.3 g/dL (32.0-36.0); Mean Corpuscular Hemoglobin 29.1 pg (27.0-33.0); Mean Corpuscular Volume 90.1 fl (81.2-95.1); Platelet Count 116 10x3/uL (150-450); RBC Distribution Width 17.8 % (11.5-14.5); Red Blood Cell (RBC) Count 2.92 10x6/uL (4.32-5.72); White Blood Cell (WBC) Count 5.9 10x3/uL (3.5-10.5)
[2021-09-26 00:39] LABS: MDiff Complete? YES; Platelet Morphology Comment Appears Decreased
[2021-09-26 00:43] LABS: Lymphocytes 13 % (21-51); Monocytes 15 % (0-10); Neutrophil 72 % (42-75)
[2021-09-26 04:39] LABS: Anisocytosis SLIGHT = 6-15 cells (100X) (0-5/hpf); Hypochromia SLIGHT = 6-15 cells (100X) (0-5/hpf); Macrocytosis SLIGHT = 6-15 cells (100X) (0-5/hpf); Microcytosis SLIGHT = 6-15 cells (100X) (0-5/hpf)
== END 2021-09-26 00:57 | disposition home or self-care (01) ==
LOC: CSHERS 17:55
DX: T85.838A Hemorrhage due to other internal prosthetic devices, implants and grafts, initial encounter (principal); D64.9 Anemia, unspecified; E11.42 Type 2 diabetes mellitus with diabetic polyneuropathy; I50.9 Heart failure, unspecified; Z95.5 Presence of coronary angioplasty implant and graft; Z79.82 Long term (current) use of aspirin; Z79.899 Other long term (current) drug therapy
CPT/HCPCS: 36415; 71045; 80053; 85025; 85610; 85730; 93005; 96372; J2597

== ENCOUNTER 2022-01-02 14:38 | Outpatient (CLI) | payer MEDICARE | END 2022-01-02 14:39 | disposition home or self-care (01) | LOC: CSHULT 14:38 | PROVIDERS: ATTEND Internal Medicine Nephrology | DX: Z01.818 Encounter for other preprocedural examination (principal); N18.6 End stage renal disease | CPT/HCPCS: 93970 ==

== ENCOUNTER 2022-01-25 16:31 | Inpatient (IN) | payer MEDICARE ==
[2022-01-25 17:27] LABS: #Basophils 0.1 10x3/uL (0.0-0.2); #Eosinphils 0.2 10x3/uL (0.0-0.5); #Monocytes 0.7 10x3/uL (0.0-1.1); #Neutrophils 4.3 10x3/uL (1.5-8.4); %Basophils 1.3 % (0.0-2.0); %Eosinophils 3.4 % (0.0-6.0); %Lymphocytes 12.1 % (18.0-47.0); %Monocytes 11.6 % (0.0-10.0); %Neutrophils 71.1 % (40.0-75.0); Hemoglobin 11.3 g/dL (13.5-17.5); Mean Corpuscular HGB CONC 32.3 g/dL (32.0-36.0); Mean Corpuscular Hemoglobin 31.3 pg (27.0-33.0); Mean Platelet Volume 10.6 fl (7.4-10.4); Platelet Count 86 10x3/uL (150-450); RBC Distribution Width 17.6 % (11.5-14.5); Red Blood Cell (RBC) Count 3.61 10x6/uL (4.32-5.72)
[2022-01-25 17:35] LABS: Troponin I 0.059 ng/mL (< 0.028)
[2022-01-25 18:11] LABS: ALT (SGPT) 14 U/L (8-55); AST (SGOT) 15 U/L (5-34); Albumin 3.8 g/dL (3.4-4.8); Alkaline Phosphatase 112 U/L (40-110); Anion Gap 20 mmol/L (10-20); BUN (Urea Nitrogen) 73 mg/dL (8.4-25.7); Bilirubin, Total 0.8 mg/dL (0.2-1.2); Calc. Creatinine Clearance 0 mL/min (70-130); Calcium 8.7 mg/dL (7.8-10.44); Carbon Dioxide 19 mmol/L (23-31); Chloride 103 mmol/L (98-107); Estimated GFR 14; Globulin 3.2 g/dL (2.4-3.5); Glucose 163 mg/dL (80-115); Potassium 4.6 mmol/L (3.5-5.1); Sodium 137 mmol/L (136-145)
[2022-01-25] MEDS ORDERED: VANCOMYCIN 2 GRAM/400 ML BAG IVPB SCH (20:30)
[2022-01-25 21:07] LABS: Magnesium 2.3 mg/dL (1.6-2.6)
[2022-01-25 21:10] LABS: PTT 29.7 sec (22.0-33.0); Prothrombin Time 11.3 sec (9.5-12.1)
[2022-01-25 21:31] LABS: CKMB 2.5 ng/mL (0-6.6)
[2022-01-25] MEDS ORDERED: Cefepime 1 GM in Sodium Chloride 0.9% 100 ML IVPB SCH (22:00)
[2022-01-25] MEDS ORDERED: VANCOMYCIN IVPB SCH (22:00)
[2022-01-25 22:02] VITALS: BMI 34.5
[2022-01-25] MEDS ORDERED: Acetaminophen 325 MG TAB PO PRN (22:42)
[2022-01-25] MEDS: hydrALAZINE 25 MG TAB PO SCH (23:18)
[2022-01-25] MEDS: Furosemide 100 MG/10 ML VIAL SLOW IVP SCH ×2 (23:19→23:35)
[2022-01-26 00:22] LABS: Bilirubin Neg (Negative); Blood, Urine 25 (Negative); Clarity Slightly Cloudy (Clear); Glucose, Urine (Dipstick) 50 mg/dL (Negative); Ketone, Urine 5 mg/dL (Negative); Leukocyte 25 (Negative); Nitrite Negative (Negative); Protein, Urine (Dipstick) 500 mg/dl (Neg-Trace); Specific Gravity, Urine 1.025 (1.002-1.036); Urobilinogen Normal mg/dL (Less than 2)
[2022-01-26 00:33] LABS: Bacteria/HPF 3+ HPF (None Seen); Squamous Epithelial 0-3 HPF (0-3); WBC/HPF Greater than 50 HPF (0-3)
[2022-01-26 00:44] LABS: CKMB 2.8 ng/mL (0-6.6)
[2022-01-26 05:44] LABS: Anion Gap 17 mmol/L (10-20); BUN (Urea Nitrogen) 77 mg/dL (8.4-25.7); Calc. Creatinine Clearance 27 mL/min (70-130); Calcium 8.8 mg/dL (7.8-10.44); Carbon Dioxide 20 mmol/L (23-31); Chloride 102 mmol/L (98-107); Estimated GFR 13; Glucose 130 mg/dL (80-115); Sodium 134 mmol/L (136-145)
[2022-01-26 05:50] LABS: #Basophils 0.1 10x3/uL (0.0-0.2); #Eosinphils 0.2 10x3/uL (0.0-0.5); #Monocytes 0.7 10x3/uL (0.0-1.1); #Neutrophils 3.6 10x3/uL (1.5-8.4); %Basophils 1.2 % (0.0-2.0); %Lymphocytes 8.6 % (18.0-47.0); %Neutrophils 72.6 % (40.0-75.0); Hemoglobin 10.4 g/dL (13.5-17.5); Mean Corpuscular HGB CONC 32.4 g/dL (32.0-36.0); Mean Corpuscular Hemoglobin 31.3 pg (27.0-33.0); Mean Corpuscular Volume 96.7 fl (81.2-95.1); Mean Platelet Volume 11.3 fl (7.4-10.4); Platelet Count 81 10x3/uL (150-450); RBC Distribution Width 17.5 % (11.5-14.5); Red Blood Cell (RBC) Count 3.32 10x6/uL (4.32-5.72)
[2022-01-26] MEDS ORDERED: Heparin 5,000 UNITS/ML VIAL SC SCH (09:00)
[2022-01-26] MEDS: Carvedilol 3.125 MG TAB PO SCH ×2 (17:25→17:30)
[2022-01-26] MEDS: hydrALAZINE 25 MG TAB PO SCH ×3 (17:25→20:53)
[2022-01-26] MEDS: Clopidogrel Bisulfate 75 MG TAB PO SCH (17:25)
[2022-01-26] MEDS ORDERED: Cefepime 0.5 GM, Admixture Fee 1 EACH in Sodium Chloride 0.9% 100 ML IVPB SCH (23:00)
[2022-01-27 05:00] LABS: #Basophils 0.1 10x3/uL (0.0-0.2); #Eosinphils 0.3 10x3/uL (0.0-0.5); #Monocytes 0.7 10x3/uL (0.0-1.1); #Neutrophils 3.4 10x3/uL (1.5-8.4); %Basophils 1.2 % (0.0-2.0); %Eosinophils 5.4 % (0.0-6.0); %Lymphocytes 9.8 % (18.0-47.0); %Monocytes 14.8 % (0.0-10.0); %Neutrophils 68.4 % (40.0-75.0); Hemoglobin 10.9 g/dL (13.5-17.5); Mean Corpuscular HGB CONC 31.4 g/dL (32.0-36.0); Mean Corpuscular Volume 98.6 fl (81.2-95.1); Platelet Count 87 10x3/uL (150-450); RBC Distribution Width 17.7 % (11.5-14.5); Red Blood Cell (RBC) Count 3.52 10x6/uL (4.32-5.72)
[2022-01-27 05:06] LABS: Anion Gap 17 mmol/L (10-20); BUN (Urea Nitrogen) 48 mg/dL (8.4-25.7); Calc. Creatinine Clearance 30 mL/min (70-130); Calcium 8.8 mg/dL (7.8-10.44); Carbon Dioxide 24 mmol/L (23-31); Chloride 100 mmol/L (98-107); Estimated GFR 15; Glucose 117 mg/dL (80-115); Sodium 137 mmol/L (136-145)
[2022-01-27] MEDS: Carvedilol 3.125 MG TAB PO SCH (10:36)
[2022-01-27] MEDS: Clopidogrel Bisulfate 75 MG TAB PO SCH (10:36)
[2022-01-27] MEDS: hydrALAZINE 25 MG TAB PO SCH (10:37)
[2022-01-27 16:45] VITALS: BP 132/62; TEMP 98
== END 2022-01-27 17:00 | disposition home or self-care (01) | DRG 91 ==
LOC: CSHERS 16:31 → CSHTELE 21:36 → OBSVTOIN 21:37
PROVIDERS: ADMIT Family Medicine; ATTEND Family Medicine
PROC: 5A1D70Z Performance of Urinary Filtration, Intermittent, Less than 6 Hours Per Day (ICD-10-PCS; principal; 2022-01-26)
DX: G92.9 Unspecified toxic encephalopathy (principal); N18.6 End stage renal disease; J96.01 Acute respiratory failure with hypoxia; I50.22 Chronic systolic (congestive) heart failure; D62 Acute posthemorrhagic anemia; I45.10 Unspecified right bundle-branch block; I25.10 Atherosclerotic heart disease of native coronary artery without angina pectoris; E11.51 Type 2 diabetes mellitus with diabetic peripheral angiopathy without gangrene; E11.42 Type 2 diabetes mellitus with diabetic polyneuropathy; D63.1 Anemia in chronic kidney disease; R04.0 Epistaxis; T50.905A Adverse effect of unspecified drugs, medicaments and biological substances, initial encounter; Z99.2 Dependence on renal dialysis; Z88.8 Allergy status to other drugs, medicaments and biological substances; Z79.899 Other long term (current) drug therapy; Z79.02 Long term (current) use of antithrombotics/antiplatelets; Z95.2 Presence of prosthetic heart valve; Z86.73 Personal history of transient ischemic attack (TIA), and cerebral infarction without residual deficits; Z95.1 Presence of aortocoronary bypass graft; Z95.5 Presence of coronary angioplasty implant and graft; Z87.891 Personal history of nicotine dependence; Z80.9 Family history of malignant neoplasm, unspecified; Z83.3 Family history of diabetes mellitus; Z82.49 Family history of ischemic heart disease and other diseases of the circulatory system; Z89.412 Acquired absence of left great toe; Z89.422 Acquired absence of other left toe(s)
CPT/HCPCS: 36415; 36416; 70450; 71045; 71275; 80048; 81001; 82140; 82553; 82607; 83605; 83735; 84443; 84484; 85025; 85610; 85730; 87040; 87086; 90935; 93005; 93010; 94760; G0257; J0690; J0692; J1644; J1940; J2001; J2250; J2405; J2720; J3370; J3490

== ENCOUNTER 2022-08-17 20:58 | Emergency (ER) | payer MEDICARE, OTHER ==
[2022-08-17 22:23] LABS: ALT (SGPT) 21 U/L (8-55); AST (SGOT) 26 U/L (5-34); Albumin 3.8 g/dL (3.4-4.8); Alkaline Phosphatase 110 U/L (40-110); Anion Gap 19 mmol/L (10-20); BUN (Urea Nitrogen) 33 mg/dL (8.4-25.7); Bilirubin, Total 1.2 mg/dL (0.2-1.2); Calc. Creatinine Clearance 0 mL/min (70-130); Calcium 8.6 mg/dL (7.8-10.44); Carbon Dioxide 23 mmol/L (23-31); Chloride 98 mmol/L (98-107); Estimated GFR 18; Globulin 3.5 g/dL (2.4-3.5); Glucose 218 mg/dL (80-115); Potassium 3.5 mmol/L (3.5-5.1); Protein, Total 7.3 g/dL (5.8-8.1); Sodium 136 mmol/L (136-145)
[2022-08-17 22:45] LABS: #Basophils 0.1 10x3/uL (0.0-0.2); #Monocytes 0.7 10x3/uL (0.0-1.1); #Neutrophils 9.4 10x3/uL (1.5-8.4); %Basophils 0.6 % (0.0-2.0); %Eosinophils 0.3 % (0.0-6.0); %Lymphocytes 3.5 % (18.0-47.0); %Monocytes 6.8 % (0.0-10.0); %Neutrophils 88.1 % (40.0-75.0); Hemoglobin 12.4 g/dL (13.5-17.5); Mean Corpuscular HGB CONC 32.9 g/dL (32.0-36.0); Mean Corpuscular Hemoglobin 32.1 pg (27.0-33.0); Mean Corpuscular Volume 97.7 fl (81.2-95.1); Platelet Count 84 10x3/uL (150-450); RBC Distribution Width 15.9 % (11.5-14.5); Red Blood Cell (RBC) Count 3.86 10x6/uL (4.32-5.72); White Blood Cell (WBC) Count 10.3 10x3/uL (3.5-10.5)
[2022-08-17 23:20] LABS: Platelet Morphology Comment Appears Decreased; RBC Morphology Normal
[2022-08-17 23:25] LABS: SARS-CoV-2 NAA Rapid Test Not Detected (NotDetected)
== END 2022-08-18 00:34 | disposition home or self-care (01) ==
LOC: CSHERS 20:58
DX: R50.9 Fever, unspecified (principal); E86.0 Dehydration; I50.9 Heart failure, unspecified; E11.22 Type 2 diabetes mellitus with diabetic chronic kidney disease; N18.9 Chronic kidney disease, unspecified; Z99.2 Dependence on renal dialysis; Z20.822 Contact with and (suspected) exposure to COVID-19
CPT/HCPCS: 71045; 80053; 83605; 85025; 87804 ×2; 93005; 99284; U0002; 36415

== ENCOUNTER 2022-10-16 10:04 | Outpatient (CLI) | payer OTHER ==
[~2022-10-16 10:04] MED LIST: Iopamidol 300 61% 100 ML VIAL FS ONE
== END 2022-10-16 10:05 | disposition home or self-care (01) ==
LOC: CSHCT 10:04
PROVIDERS: ATTEND Urology
DX: C67.9 Malignant neoplasm of bladder, unspecified (principal); R59.0 Localized enlarged lymph nodes; R18.8 Other ascites; K80.20 Calculus of gallbladder without cholecystitis without obstruction; K57.30 Diverticulosis of large intestine without perforation or abscess without bleeding
CPT/HCPCS: 74178; Q9967